=== PATIENT | female | born 1960 | race Caucasian/White ===

== ENCOUNTER 2021-08-20 11:13 | Emergency (ER) | payer OTHER | END 2021-08-20 13:05 | disposition home or self-care (01) | LOC: JP.ED 11:13 | DX: S62.316A Displaced fracture of base of fifth metacarpal bone, right hand, initial encounter for closed fracture (principal); Z88.1 Allergy status to other antibiotic agents; Z88.8 Allergy status to other drugs, medicaments and biological substances; Z79.82 Long term (current) use of aspirin; Z79.02 Long term (current) use of antithrombotics/antiplatelets; Z79.4 Long term (current) use of insulin; Z79.899 Other long term (current) drug therapy; W22.09XA Striking against other stationary object, initial encounter | CPT/HCPCS: 29125; 73110-26-RT; 73110-RT; 73130-26-RT; 73130-RT; 99283-25 ==